=== PATIENT | male | born 2000 | race Caucasian/White ===

== ENCOUNTER 2024-02-14 15:23 | Emergency (ER) | payer SELFPAY ==
[~2024-02-14] VITALS: Ht 165.1 cm; Wt 78.0 kg
[2024-02-14 15:48] VITALS: O2SAT 98
[2024-02-14 16:25] LABS: BASOPHILS % 0.7 % (0.0-2.0); CHLORIDE 107 mEq/L (98-107); EOSINOPHILS % 2.9 % (0.0-5.0); HEMATOCRIT. 47.9 % (42.0-52.0); HEMOGLOBIN. 16.4 g/dL (14.0-18.0); LYMPHOCYTES % 32.5 % (20.0-50.0); MEAN CORPUSCULAR HEMOGLOBIN 29.5 pg (28.0-32.0); MEAN CORPUSCULAR HGB CONC 34.2 g/dL (31.0-37.0); MEAN CORPUSCULAR VOLUME 86.2 fL (80.0-94.0); MEAN PLATELET VOLUME 8.9 fl (7.4-10.4); NEUTROPHILS % 56.9 % (40.0-76.0); PLATELET 339 x1000/uL (130-400); POTASSIUM 3.7 mEq/L (3.5-5.1); RED BLOOD CELL COUNT 5.55 mill/uL (4.7-6.1); RED CELL DISTRIBUTION WIDTH 13.1 % (11.6-14.6); SODIUM 138 mEq/L (136-145); WHITE BLOOD COUNT 12.6 x1000/uL (4.5-11.0)
[2024-02-14 16:26] LABS: CALCIUM 9.7 mg/dL (8.7-10.4); CARBON DIOXIDE 26 mEq/L (21-32)
[2024-02-14 16:31] LABS: GLUCOSE 99 mg/dL (70-105); UREA NITROGEN BLOOD 10 mg/dL (9-23)
[2024-02-14 16:32] LABS: TROPONIN I HIGH SENSITIVITY 7 ng/L (3.0-53)
[2024-02-14 21:57] VITALS: BP 124/79; PULSE 85; RESP 14; TEMP 36.66960; O2SAT 99
== END 2024-02-14 21:58 | disposition home or self-care (01) ==
LOC: ER 15:23
DX: R55 Syncope and collapse (principal)
CPT/HCPCS: 36415; 71045; 80048; 82962; 84484; 85025; 93005; 99285